=== PATIENT | male | born 1960 | race Caucasian/White ===

== ENCOUNTER 2019-04-28 11:46 | Day surgery (SDC) | payer OTHER ==
[~2019-04-28] VITALS: Ht 180.3 cm; Wt 157.7 kg
[2019-04-28] MEDS ORDERED: TRIAMT/HCTZ CAP 37. (13:50)
[2019-04-28] MEDS ORDERED: ALLOPURINOL TAB 300 PO (13:50)
[2019-04-28] MEDS ORDERED: PROTONIX20 MG PO (13:50)
[2019-04-28] MEDS ORDERED: LEXAPRO20 MG PO (13:50)
[2019-04-28] MEDS ORDERED: KRILL OIL 1,001 EAC1 PO (13:51)
[2019-04-28] MEDS ORDERED: DIOVAN320 MG PO (13:51)
[2019-04-28] MEDS ORDERED: BYSTOLIC5 MG PO (13:51)
[2019-04-28] MEDS ORDERED: DETROL LA4 MG PO (13:51)
[2019-04-28 14:01] VITALS: BP 141/75; Ht 180.3 cm; Wt 157.7 kg
--- NOTE | 2019-04-28 16:13 | NUR ---
1600-RECD TO ROOM FROM GI LAB. ALERT. IV PATENT. RESP WITH EASE. DR PAINTING INTO REPORT FINDINGS TO PATIENT.
--- NOTE | 2019-04-30 08:48 | OP ---
PATIENT NAME: LILIYA RANDALL MEDICAL RECORD: [id number] :56 LOCATION:[facility] ADMISSION DATE: SURGEON: PURA PAINTING DO DATE OF OPERATION: 04/28/2019 PROCEDURE: EGD with biopsies. INDICATIONS FOR PROCEDURE: Dysphagia and heartburn. SCOPE: Olympus video gastroscope. MEDICATIONS: Propofol 120 mg IV per anesthesia. ESTIMATED BLOOD LOSS: Minimal. COMPLICATIONS: None. FINDINGS: Informed consent was given. The patient was made comfortable with the above medication. After reaching an adequate level of sedation by slow IV push, the patient was placed on his left side. The endoscope was advanced under direct visualization through the mouth to the second portion of the duodenum. The entire esophagus appeared normal. At the GE junction, there was evidence of LA class C reflux-induced esophagitis without ulcerations. Cold forceps biopsies were taken from the GE junction to submit for histopathology. The endoscope was advanced beyond the GE junction into the stomach and retroflexed to view the cardia, which appeared normal. Throughout the entire stomach, there were patchy areas of granularity and erythema, consistent with mild gastritis. Random cold forceps biopsies were taken from the antrum and incisura to submit for histopathology and to rule out the presence of H. pylori. The endoscope was advanced beyond the pylorus into the duodenum, which appeared normal down to the second portion. The endoscope was withdrawn from the patient. The patient tolerated the procedure well and there were no complications. IMPRESSIONS: 1. LA class C, reflux-induced esophagitis. Biopsies pending. 2. Mild patchy gastritis of the entire stomach, characterized by erythema and granularity. Biopsies pending. PLAN AND RECOMMENDATIONS: 1. Discharge home when recovery parameters are met. 2. Follow up biopsy specimen results. 3. GERD diet and reflux precautions. 4. Continue current medications including pantoprazole 20 mg b.i.d. 5. Notify the GI clinic if symptoms worsen or fail to improve. TRANSINT:[id number] Voice Confirmation ID: [id number] DOCUMENT ID: [id number] OPERATIVE REPORT [id number] LILIYA RANDALL PURA PAINTING DO at 0848 CC: [id number] DICTATION DATE: 04/28/19 1547 CAT HOOKER: 04/28/19 1807 [facility] 04/28/19 [facility] [address] [place] [address]
== END 2019-04-28 17:15 | disposition home or self-care (01) ==
LOC: D.OPS 11:46
PROVIDERS: ATTEND Internal Medicine Gastroenterology
DX: K21.0 Gastro-esophageal reflux disease with esophagitis (principal); K29.50 Unspecified chronic gastritis without bleeding; Z01.812 Encounter for preprocedural laboratory examination

== ENCOUNTER 2019-08-18 07:50 | Day surgery (SDC) | payer OTHER ==
[~2019-08-18] VITALS: Ht 180.3 cm; Wt 160.5 kg
[~2019-08-18 07:50] MED LIST: ALLOPURINOL TAB 300 PO; BYSTOLIC5 MG PO; DETROL LA4 MG PO; DIOVAN320 MG PO; KRILL OIL 1,001 EAC1 PO; LEXAPRO20 MG PO; PROTONIX20 MG PO; TRIAMT/HCTZ CAP 37.
[2019-08-18 08:24] LABS: HEMOGLOBIN 14.9 g/dL (13.5-17.5); MCH 30.9 pg (26.0-34.0); MCHC 33.9 g/dL (31.0-37.0); MCV 91.3 fL (80.0-100.0); MEAN PLATELET VOLUME 9.9 fL (7.4-10.4); RBC 4.82 10x6/uL (4.20-6.10); RDW 13.4 % (11.5-14.5); WBC 6.4 10x3/uL (4.8-10.8)
[2019-08-18 08:50] VITALS: BP 134/77; Ht 180.3 cm; Wt 160.5 kg
--- NOTE | 2019-08-18 10:53 | NUR ---
DC INSTRUCTIONS GIVEN TO PT/FAMILY. STATE UNDERSTANDING. DC'D IV CATH FULLY INTACT.
--- NOTE | 2019-08-18 11:08 | NUR ---
PT LEFT UNIT VIA WC AT 1100
--- NOTE | 2019-08-27 07:36 | OP ---
PATIENT NAME: LILIYA RANDALL MEDICAL RECORD: [id number] :56 LOCATION:[facility] ADMISSION DATE: SURGEON: PURA PAINTING DO DATE OF OPERATION: 08/18/2019 PROCEDURE: Colonoscopy with polypectomy. INDICATIONS FOR PROCEDURE: Hematochezia, left lower quadrant abdominal tenderness. SCOPE: Olympus video pediatric colonoscope. MEDICATIONS: Propofol 350 mg IV per anesthesia. WITHDRAWAL TIME: 11 minutes. ESTIMATED BLOOD LOSS: Minimal. COMPLICATIONS: None. FINDINGS: Informed consent was given. The patient was made comfortable with the above medication. After reaching an adequate level of sedation by slow IV push, the patient was placed on his left side. A digital rectal examination was performed and was normal. The endoscope was advanced under direct visualization through the rectum to the cecum, confirmed by the presence of the appendiceal orifice and ileocecal valve. The endoscope was slowly withdrawn. Mucosa was carefully examined. The prep quality was good. There was a single benign-appearing sessile polyp located in the transverse colon, which measured approximately 3 mm in diameter. It was removed using a hot forceps. There were no diverticula visualized on today's examination. Retroflexion was performed in the rectum with visualization of grade I internal hemorrhoids without bleeding. The endoscope was withdrawn from the patient. The patient tolerated the procedure well and there were no complications. IMPRESSION: 1. A benign appearing sessile polyp located in the transverse colon, status post polypectomy with hot forceps. 2. Grade I internal hemorrhoids without bleeding. PLAN AND RECOMMENDATIONS: 1. Discharge home when recovery parameters are met. 2. High fiber diet. 3. Continue current medications. 4. Recall colonoscopy in 5 years. TRANSINT:[id number] Voice Confirmation ID: [id number] DOCUMENT ID: [id number] OPERATIVE REPORT [id number] LILIYA RANDALL PURA PAINTING DO at 0736 CC: [id number] DICTATION DATE: 08/18/19 1027 [place] SORTER: 08/18/[address] [facility] 08/18/19 [place] [id number]
== END 2019-08-18 11:08 | disposition home or self-care (01) ==
LOC: D.OPS 07:50
PROVIDERS: Anesthesiology; ATTEND Internal Medicine Gastroenterology
DX: K63.5 Polyp of colon (principal); K64.0 First degree hemorrhoids